=== PATIENT | male | born 1980 ===

== ENCOUNTER 2023-03-11 01:05 | Outpatient (CLI) | payer SELFPAY | END 2023-03-11 23:59 | disposition critical access hospital (66) | LOC: EMS 01:05 | DX: I16.9 Hypertensive crisis, unspecified (principal) | CPT/HCPCS: A0425; A0429 ==

== ENCOUNTER 2023-03-11 01:26 | Emergency (ER) | payer SELFPAY ==
[2023-03-11 02:17] LABS: BASOPHILS # (AUTO) 0.1 10^3/uL (0.0-0.1); EOSINOPHILS # (AUTO) 0.3 10^3/uL (0.0-0.7); EOSINOPHILS % (AUTO) 5.1 %; HGB - HEMOGLOBIN 15.1 g/dL (14.0-18.0); LYMPHOCYTES # (AUTO) 2.2 10^3/uL (1.5-3.5); LYMPHOCYTES % (AUTO) 36.3 %; MEAN CORPUSCULAR HEMOGLOBIN 30.9 pg (27.0-31.0); MEAN CORPUSCULAR HGB CONC 32.8 g/dL (32.0-36.0); MEAN CORPUSCULAR VOLUME 94.1 fL (80.0-94.0); MEAN PLATELET VOLUME 10.7 fL (7.4-11.4); MONOCYTES # (AUTO) 0.7 10^3/uL (0.0-1.0); MONOCYTES % (AUTO) 11.4 %; NEUTROPHILS # (AUTO) 2.8 10^3/uL (1.5-6.6); NEUTROPHILS % (AUTO) 45.9 %; PLT - PLATELET COUNT 181 10^3/uL (130-450); RED BLOOD COUNT 4.89 10^6/uL (4.70-6.10); WHITE BLOOD COUNT 6.1 x10^3/uL (4.8-10.8)
[2023-03-11 02:32] LABS: ALBUMIN 4.1 g/dL (3.2-5.5); ALBUMIN/GLOBULIN RATIO 1.7 (1.0-2.2); BILIRUBIN,TOTAL 0.9 mg/dL (0.2-1.0); CALCIUM 9.2 mg/dL (8.5-10.3); CREATININE 0.8 mg/dL (0.6-1.3); POTASSIUM 4.2 mmol/L (3.5-4.5); TOTAL PROTEIN 6.5 g/dL (6.4-8.9)
[2023-03-11 02:49] LABS: THYROID STIMULATING HORMONE 5.6 uIU/mL (0.34-5.60)
--- NOTE | 2023-03-11 03:10 | ED Physician Documentation ---
History of Present Illness - Stated complaint Stated Complaint: HIGH BP - Chief complaint Chief Complaint: Cardiac - History obtained from History obtained from: Patient - Additonal information Additional information: 42-year-old male presents by EMS from home for palpitations, blurred vision, high blood pressure. History is limited as patient only speaks Italian and there is currently no available Italian surgical lead available with surgical lead services. History is also supplemented with records from [facility], patient visited their ER earlier today as well. Per [facility] records patient presented initially to an urgent care for the symptoms, and was referred to the emergency department. At that time patient received blood work, which showed a hemoglobin 15, WBC count 5.5, platelets 177, sodium 137, potassium 3.6, creatinine 0.81, glucose 103, AST 45, ALT 50. Based on vague symptoms and no focal neurologic finding no CT was obtained at that time. Patient was discharged on 5 mg of lisinopril for elevated blood pressure. Patient states he continued to feel symptomatic tonight and called 911. In route by EMS patient's blood pressure was 190 systolic. Review of Systems Constitutional: denies: Fever, Chills Eyes: reports: Other (Blurred vision). denies: Loss of vision Ears: denies: Loss of hearing, Ear pain, Drainage/discharge Nose: denies: Rhinorrhea / runny nose, Foreign Body Throat: denies: Dental pain / toothache, Oral lesions / sores, Sore throat Cardiac: reports: Palpitations. denies: Chest pain / pressure, Calf pain Respiratory: denies: Dyspnea, Cough, Wheezing Musculoskeletal: denies: Neck pain, Back pain, Extremity pain Neurologic: denies: Generalized weakness, Focal weakness, Numbness, Syncope, Seizure, Headache, Head injury, LOC PD PAST MEDICAL HISTORY - Past Medical History Past Medical History: Yes Cardiovascular: Hypertension - Past Surgical History Past Surgical History: No - Present Medications Home Medications: Ambulatory Orders Medication Instructions Recorded Confirmed lisinopriL [Lisinopril] 10 mg PO DAILY 03/11/23 03/11/23 - Allergies Allergies/Adverse Reactions: Allergies Allergy/AdvReac Type Severity Reaction Status Date / Time No Known Drug Allergies Allergy Verified 03/11/23 01:52 - Social History Does the pt smoke?: No Smoking Status: Never smoker Does the pt drink ETOH?: Yes ETOH Use: Beer Does the pt have substance abuse?: No - Immunizations Immunizations are current?: Yes - POLST Patient has POLST: No PD ED PE NORMAL - Vitals Vital signs reviewed: Yes - General General: Alert and oriented X 3, No acute distress, Well developed/nourished - HEENT HEENT: Atraumatic, PERRL, EOMI, Ears normal - Cardiac Cardiac: RRR, Strong equal pulses - Derm Derm: Normal color, Warm and dry, No rash - Extremities Extremities: No deformity, No tenderness to palpate, Normal ROM s pain, No edema - Neuro Neuro: Alert and oriented X 3, vice investigator 2-12 intact, No motor deficit, Normal speech - Psych Psych: Normal mood, Normal affect Results - Vitals Vitals: Vital Signs - 24 hr 03/11/23 03/11/23 03/11/23 01:25 01:46 02:07 Temperature 36.2 C L Heart Rate 100 83 Respiratory 17 18 Rate Blood Pressure 173/114 H 177/126 H Blood Pressure 179/120 H [Left] O2 Saturation 100 98 03/11/23 03/11/23 03/11/23 02:46 03:00 03:39 Temperature Heart Rate 71 66 70 Respiratory 18 16 23 Rate Blood Pressure 171/117 H 171/117 H 151/107 H Blood Pressure [Left] O2 Saturation 100 99 100 03/11/23 04:18 Temperature 36.4 C L Heart Rate 64 Respiratory 18 Rate Blood Pressure 152/108 H Blood Pressure [Left] O2 Saturation 100 Oxygen O2 Source Room air - Labs Labs: Laboratory Tests 03/11/23 03/11/23 03/11/23 01:46 01:46 01:46 WBC 6.1 RBC 4.89 Hgb 15.1 Hct 46.0 MCV 94.1 H MCH 30.9 MCHC 32.8 RDW 12.0 Plt Count 181 MPV 10.7 Neut # (Auto) 2.8 Lymph # (Auto) 2.2 [place] # (Auto) 0.7 Eos # (Auto) 0.3 Baso # (Auto) 0.1 Absolute Nucleated RBC 0.00 Nucleated RBC % 0.0 Sodium 136 Potassium 4.2 Chloride 102 Carbon Dioxide 25 Anion Gap 9.0 BUN 8 Creatinine 0.8 Estimated GFR (MDRD) 107 Glucose 193 H Calcium 9.2 Total Bilirubin 0.9 AST 26 ALT 33 Alkaline Phosphatase 71 Troponin I High Sens 4.6 Total Protein 6.5 Albumin 4.1 Globulin 2.4 Albumin/Globulin Ratio 1.7 TSH 5.60 PD Medical Decision Making - ED course Complexity details: reviewed old records, reviewed results, re-evaluated patient, considered differential, d/w patient ED course: Repeat visit for palpitations, blurred vision, elevated blood pressure. Patient does have elevated blood pressure on arrival, however otherwise hemodynamically stable, no acute distress, sitting comfortably in ED bed. Records obtained from [facility] were reviewed. Since this is patient's repeat visit to an emergency department in less than 24 hours will add additional workup in cluding troponin, chest x-ray, head CT. Blood pressure decreased without intervention in the emergency department. Laboratory work here is more or less unchanged from when he was at [facility]. TSH is borderline elevated, troponin negative, CT brain negative for acute findings, chest x-ray within normal limits. Patient advised of results, counseled that he should increase his lisinopril if his blood pressure is not controlled. Primary care follow-up advised. Departure - Departure Disposition: 01 Home, Self Care Clinical Impression: Hypertension, Palpitations Condition: Stable Instructions: High Blood Pressure Comments: Increase your lisinopril to 10mg daily. If that does not improve your blood pressure you may increase the dose to 20mg daily. Forms: PCP List Discharge Date/Time: 03/11/23 04:35
[2023-03-11 03:43] VITALS: O2SAT 100
[2023-03-11 04:42] VITALS: BP 152/108
--- NOTE | 2023-03-11 07:34 | CT Report ---
PROCEDURE: Head WO INDICATIONS: HTN/WELLER/BLURRED VISION TECHNIQUE: Noncontrast 4.5 mm thick angled axial sections acquired from the foramen magnum to the vertex. For r adiation dose reduction, the following was used: automated exposure control, adjustment of mA and/or kV according to patient size. COMPARISON: None. FINDINGS: Image quality: Excellent. CSF spaces: Basal cisterns are patent. No extra-axial fluid collections. Ventricles are normal in size and shape. Brain: No midline shift. No intracranial masses or hemorrhage. Linn-white matter interface is norm al. Skull and face: Calvarium and visualized facial bones are intact, without suspicious lesions. Sinuses: Visualized sinuses and mastoids are clear. IMPRESSION: No acute intracranial pathology. Findings are concordant with preliminary interpretation provided by [facility]. Reviewed by: Tereso Leigh MD on 03/11/2023 7:33 AM PST Approved by: Tereso Leigh MD on 03/11/2023 7:33 AM PST Station ID: [id number]
== END 2023-03-11 04:35 | disposition home or self-care (01) ==
LOC: ED 01:26
DX: R00.2 Palpitations (principal); I10 Essential (primary) hypertension
CPT/HCPCS: 36415; 80053; 84443; 84484; 85025; 93005; 99283; 99284